=== PATIENT | male | born 1935 | race Caucasian/White ===

== ENCOUNTER 2017-01-31 09:14 | Inpatient (IN) | payer MEDICARE ==
[~2017-01-31] VITALS: Ht 170.2 cm; Wt 64.0 kg
[2017-01-31] MEDS ORDERED: SODIUM CHLORIDE 0.9% 1,000 ML IV ONE ×2 (09:44→10:53)
[2017-01-31] MEDS ORDERED: PANTOPRAZOLE 80 MG in SODIUM CHLORIDE 0.9% 50 ML IVPB ONE (09:44)
[2017-01-31] MEDS ORDERED: PANTOPRAZOLE 80 MG in SODIUM CHLORIDE 0.9% 100 ML IV SCH (09:44)
[2017-01-31] MEDS ORDERED: SODIUM CHLORIDE FLUSH 10ML SYR IVF ONE (10:00)
[2017-01-31] MEDS ORDERED: SODIUM CHLORIDE 0.9% 1,000ML IVBOLUS ONE (10:00)
[2017-01-31 10:06] LABS: HEMATOCRIT 23.5 % (39.2-51.8); WHITE BLOOD COUNT 13.7 x10^3/uL (3.4-10)
[2017-01-31 10:19] LABS: ASPARTATE AMINO TRANSFERASE 16 U/L (15-37); BLOOD UREA NITROGEN 58 mg/dL (7-18)
[2017-01-31] MEDS ORDERED: SODIUM CHLORIDE FLUSH 10ML SYR IVF PRN (11:00)
[2017-01-31 13:00] VITALS: BP 115/65
[2017-01-31 15:33] VITALS: BP_SYST 110; BP_SYST 95; BP_DIAS 53; BP_DIAS 58
[2017-01-31] MEDS ORDERED: PROMETHAZINE 25 MG/ML, 1ML IM PRN (17:00)
[2017-01-31] MEDS ORDERED: ACETAMINOPHEN 325 MG TABLET PO PRN (17:00)
[2017-01-31] MEDS ORDERED: ONDANSETRON 2MG/ML, 2ML IVPush PRN (17:00)
[2017-01-31] MEDS: SODIUM CHLORIDE 0.9% 1,000 ML IV SCH (18:28)
[2017-01-31] MEDS: PANTOPRAZOLE 80 MG in SODIUM CHLORIDE 0.9% 100 ML IV SCH (18:29)
[2017-01-31 19:44] VITALS: BP_SYST 100; BP_SYST 93; BP_DIAS 56; BP_DIAS 57
[2017-01-31 21:18] LABS: HEMATOCRIT 17.7 % (39.2-51.8); HEMOGLOBIN 6.1 g/dL (13.7-18.0)
[2017-01-31] MEDS ORDERED: FUROSEMIDE 20 MG/2 ML IV ONE (22:30)
[2017-01-31 22:48] VITALS: BP 89/59
[2017-01-31 23:03] VITALS: BP 101/55
[2017-02-01] VITALS (16 sets, daily range): BP systolic 89–108; BP diastolic 37–65
[2017-02-01] MEDS: SODIUM CHLORIDE 0.9% 1,000 ML IV SCH ×3 (04:10→22:33)
[2017-02-01] MEDS: PANTOPRAZOLE 80 MG in SODIUM CHLORIDE 0.9% 100 ML IV SCH ×3 (04:10→23:14)
[2017-02-01] MEDS ORDERED: FUROSEMIDE 20 MG/2 ML ONE (05:23)
[2017-02-01 10:03] LABS: HEMATOCRIT 29.3 % (39.2-51.8); HEMOGLOBIN 10.1 g/dL (13.7-18.0); WHITE BLOOD COUNT 10.8 x10^3/uL (3.4-10)
[2017-02-01 10:14] LABS: ASPARTATE AMINO TRANSFERASE 12 U/L (15-37); BLOOD UREA NITROGEN 42 mg/dL (7-18)
[2017-02-01] MEDS ORDERED: SODIUM CHLORIDE 0.9% 500 ML IV SCH (10:30)
[2017-02-01] MEDS ORDERED: FENTANYL PF 100 MCG/2ML ONE (11:08)
[2017-02-01] MEDS ORDERED: MIDAZOLAM 1 MG/ML, 5ML ONE (11:08)
[2017-02-01] MEDS ORDERED: EPINEPHRINE SYRINGE 0.1 MG/ML, 10ML ONE (11:47)
[2017-02-01 16:04] LABS: HEMOGLOBIN 9.7 g/dL (13.7-18.0)
[2017-02-01] MEDS ORDERED: SODIUM CHLORIDE 0.9% 1,000 ML IV SCH (16:31)
[2017-02-02 03:59] VITALS: BP 102/52
[2017-02-02 06:11] LABS: HEMATOCRIT 26.6 % (39.2-51.8); HEMOGLOBIN 9.2 g/dL (13.7-18.0); WHITE BLOOD COUNT 8.7 x10^3/uL (3.4-10)
[2017-02-02 06:22] LABS: BLOOD UREA NITROGEN 26 mg/dL (7-18)
[2017-02-02 07:05] VITALS: BP 106/56
[2017-02-02] MEDS ORDERED: SODIUM CHLORIDE 0.9% 500 ML IV ONE (10:30)
[2017-02-02] MEDS: PANTOPRAZOLE 80 MG in SODIUM CHLORIDE 0.9% 100 ML IV SCH (10:37)
[2017-02-02] MEDS ORDERED: OMEP40CA6 PO (10:55)
[2017-02-02] MEDS ORDERED: SODIUM CHLORIDE 0.9% 1,000 ML IV SCH (11:30)
== END 2017-02-02 12:09 | disposition home or self-care (01) | DRG 377 ==
LOC: ED 10:12 → SUATTDRO 10:52 → EDIP 10:53 → 4WST 13:23 → DCLOUNGE 02-02 11:33
PROVIDERS: ADMIT Internal Medicine; ATTEND Internal Medicine
PROC: 0W3P8ZZ Control Bleeding in Gastrointestinal Tract, Via Natural or Artificial Opening Endoscopic (ICD-10-PCS; 2017-02-01)
PROC: 3E0G8GC Introduction of Other Therapeutic Substance into Upper GI, Via Natural or Artificial Opening Endoscopic (ICD-10-PCS; 2017-02-01)
PROC: 30233N1 Transfusion of Nonautologous Red Blood Cells into Peripheral Vein, Percutaneous Approach (ICD-10-PCS; principal; 2017-02-01 11:30)
DX: K26.4 Chronic or unspecified duodenal ulcer with hemorrhage (principal); N17.0 Acute kidney failure with tubular necrosis; E87.2 Acidosis; I95.9 Hypotension, unspecified; E88.09 Other disorders of plasma-protein metabolism, not elsewhere classified; E86.0 Dehydration; D62 Acute posthemorrhagic anemia; K22.10 Ulcer of esophagus without bleeding; K57.30 Diverticulosis of large intestine without perforation or abscess without bleeding; F17.290 Nicotine dependence, other tobacco product, uncomplicated; G89.29 Other chronic pain; K52.9 Noninfective gastroenteritis and colitis, unspecified; K29.80 Duodenitis without bleeding; Z90.89 Acquired absence of other organs
CPT/HCPCS: 36415; 71010; 80048; 80053; 81003; 83605; 83735; 84100; 85014; 85018; 85025; 85610; 85730; 86850; 86900; 86923; 93005; 96361; 96365; 99152; 99153; J2250; J3010; C9113; J1940; J7030; J7040; P9016

== ENCOUNTER 2019-11-24 08:37 | Emergency (ER) | payer MEDICARE ==
[~2019-11-24] VITALS: Ht 170.2 cm; Wt 61.5 kg
[~2019-11-24 08:37] MED LIST: OMEP40CA42 PO
[2019-11-24] MEDS ORDERED: SODIUM CHLORIDE 0.9% 1,000 ML IV ONE (08:52)
--- NOTE | 2019-11-24 08:57 | NUR ---
FIRST CONTACT WITH PT. PT STATED "I HAVE STOMACH ULCERS FOR WEEKS. NOT EATING MUCH. LOSING WEIGHT" PT C/O SORE THROAT/ABD PAIN/BLACK STOOL/N/V/WEIGHT AND APPETITIE CHANGES FOR A WHILE. PT'S AOX4. RESPS EVEN AND UNLABORED. BP/SPO2 MONITORS IN PLACE. CALL LIGHT WITHIN REACH. AT BEDSIDE. EDMD AT BEDSIDE EVALUATING AT THIS TIME.
[2019-11-24] MEDS ORDERED: SODIUM CHLORIDE FLUSH 10ML SYR IVF ONE (09:00)
[2019-11-24] MEDS ORDERED: SODIUM CHLORIDE 0.9% 1,000ML IVBOLUS ONE (09:00)
[2019-11-24] MEDS ORDERED: ONDANSETRON 2MG/ML, 2ML IVPush ONE (09:00)
[2019-11-24] MEDS ORDERED: ONDANSETRON 2MG/ML, 2ML ONE (09:02)
--- NOTE | 2019-11-24 09:05 | NUR ---
PT IN XRAY AT THIS TIME.
--- NOTE | 2019-11-24 09:23 | NUR ---
pt medicated per emar. ns infusing at this time. pt tolerated well.
[2019-11-24 09:26] LABS: ALANINE AMINOTRANSFERASE 40 U/L (12-78); ALBUMIN 2.8 g/dL (3.4-5.0); ANION GAP 4 mmol/L (5-15); CHLORIDE 103 mmol/L (98-107); CREATININE 1.12 mg/dL (0.7-1.3)
[2019-11-24 09:27] LABS: BASOPHILS # (AUTO) 0.04 x10^3/uL (0-0.1); BASOPHILS % (AUTO) 0 % (0-1); EOSINOPHILS # (AUTO) 0.06 x10^3/uL (0-0.4); EOSINOPHILS % (AUTO) 1 % (1-7); LYMPHOCYTES # (AUTO) 2.26 x10^3/uL (1-3.4); LYMPHOCYTES % (AUTO) 25 % (22-44); MD NO; MEAN CORPUSCULAR HEMOGLOBIN 30.3 pg (27.5-34.5); MEAN CORPUSCULAR HGB CONC 32.4 g/dL (33.2-36.2); MEAN CORPUSCULAR VOLUME 93.4 fL (81-97); MEAN PLATELET VOLUME 7.8 fL (7.4-10.4); MONOCYTES # (AUTO) 0.62 x10^3/uL (0.2-0.8); MONOCYTES % (AUTO) 7 % (2-9); NEUTROPHILS # (AUTO) 6.21 x10^3/uL (1.8-6.8); NEUTROPHILS % (AUTO) 68 % (42-75); PLATELET COUNT 315 x10^3/uL (130-400); RED BLOOD COUNT 4.79 x10^6/uL (4.38-5.82); RED CELL DISTRIBUTION WIDTH 14.1 % (9.4-14.8)
[2019-11-24 09:28] LABS: ALKALINE PHOSPHATASE 180 U/L (45-117); BILIRUBIN,TOTAL 1.1 mg/dL (0.2-1.0); TOTAL PROTEIN 6.9 g/dL (6.4-8.2)
--- NOTE | 2019-11-24 09:32 | NUR ---
URINAL AT BEDSIDE. PT AWARE OF UA.
[2019-11-24] MEDS ORDERED: PANTOPRAZOLE 40 MG IV ONE (09:51)
--- NOTE | 2019-11-24 09:53 | NUR ---
us at bedside at this time.
--- NOTE | 2019-11-24 09:56 | NUR ---
pt medicated per emar. pt tolerated well. ns infusing at this time.
[2019-11-24] MEDS ORDERED: PANTOPRAZOLE 40 MG IV IVPush ONE (10:00)
--- NOTE | 2019-11-24 10:53 | NUR ---
PT PROVIDED URINE SAMPLE AT THIS TIME. URINE COLLECTED AND UA SENT.
[2019-11-24 11:04] LABS: MICROSCOPIC NOT IND
[2019-11-24 11:20] VITALS: BP 102/69
--- NOTE | 2019-11-24 11:20 | NUR ---
PT RESTING IN [facility]. PT'S AOX4. RESPS EVEN AND UNLABORED. BP/SPO2 MONITORS IN PLACE. CALL LIGHT WITHIN REACH. AT BEDSIDE.
== END 2019-11-24 11:41 | disposition home or self-care (01) ==
LOC: ED 09:27
DX: Z03.818 Encounter for observation for suspected exposure to other biological agents ruled out (principal); K29.00 Acute gastritis without bleeding; R19.7 Diarrhea, unspecified; R53.1 Weakness; R11.0 Nausea
CPT/HCPCS: 36415; 74022; 74220; 76700; 80053; 81003; 83690; 85025; 87635; 96361; 96374; 96375; 99285; C9113; J2405; J7030

== ENCOUNTER 2019-11-27 05:57 | Day surgery (SDC) | payer MEDICARE ==
[~2019-11-27] VITALS: Ht 170.2 cm; Wt 61.1 kg
[2019-11-27] MEDS ORDERED: LACTATED RINGERS 1,000 ML IV SCH (07:04)
[2019-11-27] MEDS ORDERED: OMEP-110 PO (07:07)
[2019-11-27] MEDS ORDERED: TAMS-11 PO (07:07)
[2019-11-27] MEDS ORDERED: CHLORHEXIDINE 15 ML UDC MM ONE (07:30)
[2019-11-27 07:38] VITALS: BP 113/74
[2019-11-27] MEDS ORDERED: PROPOFOL 10 MG/ML, 20ML ONE ×2 (08:54)
[2019-11-27] MEDS ORDERED: PROMETHAZINE 12.5 MG SUPP PR PRN (09:00)
[2019-11-27] MEDS ORDERED: LABETALOL 5MG/ML, 20ML IV PRN (09:00)
[2019-11-27] MEDS ORDERED: DIPHENHYDRAMINE 50 MG/ML, 1ML IVPush PRN (09:00)
[2019-11-27] MEDS ORDERED: PROMETHAZINE 25 MG/ML, 1ML IVPush PRN (09:00)
[2019-11-27] MEDS ORDERED: DIAZEPAM 5 MG/ML, 2ML IVPush PRN (09:00)
[2019-11-27] MEDS ORDERED: hydrALAzine 20 MG/ML, 1ML IV PRN (09:00)
[2019-11-27] MEDS ORDERED: EPHEDRINE 50 MG/ML, 1ML IVPush PRN (09:00)
[2019-11-27] MEDS ORDERED: MEPERIDINE/PF 25MG/0.5ML IVPush PRN (09:00)
[2019-11-27] MEDS ORDERED: FENTANYL PF 100 MCG/2ML IV PRN (09:00)
[2019-11-27] MEDS ORDERED: OXYcodone 5 MG/5 ML ORAL.SOL UDC PO PRN (09:00)
[2019-11-27] MEDS ORDERED: ALBUTEROL SULFATE 2.5 MG/3 ML NPPB PRN (09:00)
[2019-11-27] MEDS ORDERED: MIDAZOLAM 1 MG/ML, 2ML IV PRN (09:00)
[2019-11-27] MEDS ORDERED: ONDANSETRON 2MG/ML, 2ML IVPush PRN (09:00)
[2019-11-27] MEDS ORDERED: HYDROmorphone 1 MG/ML, 1ML INJ IVPush PRN (09:00)
== END 2019-11-27 10:45 | disposition home or self-care (01) ==
LOC: OUT 05:57
PROVIDERS: ATTEND Internal Medicine Gastroenterology
DX: R13.10 Dysphagia, unspecified (principal); D13.2 Benign neoplasm of duodenum; K20.8 Other esophagitis; K31.7 Polyp of stomach and duodenum; K31.89 Other diseases of stomach and duodenum; F17.290 Nicotine dependence, other tobacco product, uncomplicated; Z79.82 Long term (current) use of aspirin; Z79.899 Other long term (current) drug therapy; Z88.5 Allergy status to narcotic agent; Z98.890 Other specified postprocedural states
CPT/HCPCS: 43239; 88305; 93005; J2704; J7120

== ENCOUNTER 2020-02-05 17:46 | Emergency (ER) | payer MEDICARE ==
[~2020-02-05] VITALS: Ht 170.2 cm; Wt 66.9 kg
[~2020-02-05 17:46] MED LIST changes: +OMEP-110 PO; +TAMS-11 PO
[2020-02-05 18:35] LABS: ALANINE AMINOTRANSFERASE 15 U/L (12-78); ALBUMIN 3.3 g/dL (3.4-5.0); ANION GAP 2 mmol/L (5-15); BASOPHILS % (AUTO) 1 % (0-1); CALCIUM 9.1 mg/dL (8.5-10.1); CHLORIDE 109 mmol/L (98-107); CREATININE 1.14 mg/dL (0.7-1.3); EOSINOPHILS % (AUTO) 6 % (1-7); LYMPHOCYTES % (AUTO) 33 % (22-44); MEAN CORPUSCULAR HEMOGLOBIN 30.3 pg (27.5-34.5); MEAN CORPUSCULAR HGB CONC 32.7 g/dL (33.2-36.2); MEAN PLATELET VOLUME 8.2 fL (7.4-10.4); MONOCYTES % (AUTO) 7 % (2-9); NEUTROPHILS % (AUTO) 54 % (42-75); PLATELET COUNT 163 x10^3/uL (130-400); RED BLOOD COUNT 4.74 x10^6/uL (4.38-5.82); RED CELL DISTRIBUTION WIDTH 15.7 % (9.4-14.8)
[2020-02-05 18:36] LABS: MD NO
[2020-02-05 18:37] LABS: ALKALINE PHOSPHATASE 92 U/L (45-117); BILIRUBIN,TOTAL 0.5 mg/dL (0.2-1.0); TOTAL PROTEIN 6.8 g/dL (6.4-8.2)
--- NOTE | 2020-02-05 18:39 | NUR ---
PATIENT WALKED BACK FROM TRIAGE WITH CHIEF C/O RLQ ABD PAIN X3 WEEKS. PATIENT STATES PAIN HAS GOTTEN WORSE IN THE LAST WEEK. DENIES URINARY SYMPTOMS, DENIES N/V/D. PATIENT CONNECTED TO VITALS MACHINE, ACCOMPANIED BY , NO SIGNS OF ACUTE DISTRESS, CALL LIGHT WITHIN REACH.
--- NOTE | 2020-02-05 19:01 | NUR ---
Water provided for patient.
--- NOTE | 2020-02-05 19:38 | NUR ---
20 gauge IV started right wrist, patient educated on need for urine sample, he will try to urinate.
--- NOTE | 2020-02-05 19:50 | NUR ---
PATIENT TO IMAGING.
[2020-02-05] MEDS ORDERED: OMNIPAQUE 350 MG/ML, 100ML BOTTLE ONE (20:13)
--- NOTE | 2020-02-05 20:22 | NUR ---
Urine collected and walked to lab.
[2020-02-05 20:30] LABS: MICROSCOPIC NOT IND
[2020-02-05 20:49] VITALS: BP 133/75
--- NOTE | 2020-02-05 20:53 | NUR ---
ERMD AT BEDSIDE TO DISCUSS POC.
== END 2020-02-05 21:06 | disposition home or self-care (01) ==
LOC: ED 21:04
DX: R10.31 Right lower quadrant pain (principal); F17.200 Nicotine dependence, unspecified, uncomplicated
CPT/HCPCS: 36415; 74177; 80053; 81003; 85025; 99285; Q9967

== ENCOUNTER → 2020-04-28 | Outpatient (CLI) | payer MEDICARE | END | disposition home or self-care (01) | LOC: CLISVCS 08:34 | PROVIDERS: ATTEND Anesthesiology | DX: Z20.828 Contact with and (suspected) exposure to other viral communicable diseases (principal) | CPT/HCPCS: 87635 ==

== ENCOUNTER 2020-05-04 08:17 | Day surgery (SDC) | payer MEDICARE ==
[~2020-05-04] VITALS: Ht 171.4 cm; Wt 68.6 kg
[2020-05-04] MEDS ORDERED: LACTATED RINGERS 1,000 ML IV SCH (09:00)
[2020-05-04] MEDS ORDERED: CHLORHEXIDINE 15 ML UDC MM ONE (09:00)
[2020-05-04] MEDS ORDERED: ACET-1600 PO (09:01)
[2020-05-04 09:06] VITALS: BP 125/79
[2020-05-04 09:23] VITALS: BP 125/79
[2020-05-04] MEDS ORDERED: FENTANYL PF 100 MCG/2ML ONE ×4 (10:20→12:09)
[2020-05-04] MEDS ORDERED: EPINEPHRINE 1 MG/ML, 1ML ONE (10:21)
[2020-05-04] MEDS ORDERED: BUPIVACAINE/PF 0.5% ONE (10:21)
[2020-05-04] MEDS ORDERED: NEOSTIGMINE 1 MG/ML, 10ML ONE (10:33)
[2020-05-04] MEDS ORDERED: DEXAMETHASONE 4 MG/ML, 1ML ONE (10:33)
[2020-05-04] MEDS ORDERED: SUCCINYLCHOLINE 20 MG/ML, 10ML ONE (10:33)
[2020-05-04] MEDS ORDERED: PROPOFOL 10 MG/ML, 20ML ONE (10:33)
[2020-05-04] MEDS ORDERED: CEFAZOLIN 1,000 MG ONE (10:33)
[2020-05-04] MEDS ORDERED: GLYCOPYRROLATE 0.2MG/1ML, 5ML ONE (10:33)
[2020-05-04] MEDS ORDERED: ESMOLOL 100 MG/10 ML ONE (10:33)
[2020-05-04] MEDS ORDERED: ROCURONIUM 10 MG/ML,10ML ONE (10:33)
[2020-05-04] MEDS ORDERED: hydrALAzine 20 MG/ML, 1ML ONE (10:33)
[2020-05-04] MEDS ORDERED: ONDANSETRON 2MG/ML, 2ML ONE (10:33)
[2020-05-04] MEDS ORDERED: FENTANYL PF 100 MCG/2ML IV PRN (11:30)
[2020-05-04] MEDS ORDERED: ACETAMINOPHEN 325 MG TABLET PO PRN (11:30)
[2020-05-04] MEDS ORDERED: ONDANSETRON 2MG/ML, 2ML IVPush PRN (11:30)
[2020-05-04] MEDS ORDERED: OXYcodone 5 MG/5 ML ORAL.SOL UDC PO PRN (11:30)
[2020-05-04] MEDS ORDERED: HYDROmorphone 1 MG/ML, 1ML INJ IVPush PRN (11:30)
[2020-05-04] MEDS ORDERED: LABETALOL 5MG/ML, 20ML IV PRN (11:30)
[2020-05-04] MEDS ORDERED: hydrALAzine 20 MG/ML, 1ML IV PRN (12:00)
[2020-05-04] MEDS ORDERED: IBUP100T7 PO (12:06)
[2020-05-04] MEDS ORDERED: OXYC5CAP2 PO (12:06)
[2020-05-04] MEDS ORDERED: ACET325T14 PO (12:06)
[2020-05-04] MEDS ORDERED: POLY17PO5 PO (12:06)
[2020-05-04] MEDS ORDERED: OXYcodone 5 MG/5 ML ORAL.SOL UDC ONE (12:22)
[2020-05-04] MEDS ORDERED: ACETAMINOPHEN 650 MG/20.3 ML UDC ONE (12:22)
== END 2020-05-04 14:45 | disposition home or self-care (01) ==
LOC: OUT 08:17
PROVIDERS: ATTEND Student in an Organized Health Care Education/Training Program
DX: K40.20 Bilateral inguinal hernia, without obstruction or gangrene, not specified as recurrent (principal); K41.90 Unilateral femoral hernia, without obstruction or gangrene, not specified as recurrent; Z79.899 Other long term (current) drug therapy
CPT/HCPCS: 49650; 93005; C1781; J0171; J0330; J0360; J0690; J1100; J2405; J2704; J2710; J3010; J7120